=== PATIENT | female | born 1995 | race Two or more races ===

== ENCOUNTER → 2024-09-11 | Emergency (ER) | payer OTHER ==
[~2024-09-11] VITALS: Ht 152.4 cm; Wt 52.2 kg
[~2024-09-11] MED LIST: GUAIFENESIN 200 MG/10 ML BLIST.PACK PO ONE
== END | disposition home or self-care (01) ==
LOC: ER 07:07
DX: J10.1 Influenza due to other identified influenza virus with other respiratory manifestations (principal); G43.909 Migraine, unspecified, not intractable, without status migrainosus; J45.909 Unspecified asthma, uncomplicated